=== PATIENT | female | born 1950 | race Caucasian/White ===

== ENCOUNTER → 2021-10-12 | Outpatient (CLI) | payer MEDICARE ==
--- NOTE | 2021-10-12 15:53 | Diagnostic Imaging Report ---
CLINICAL INDICATION: Patient with osteophyte of left knee. EXAM: X-ray of the left knee, three views. COMPARISON: None. FINDINGS: There is no acute fracture or dislocation. There is at least mild medial compartment narrowing. There is appearance of a small left knee effusion. The remainder of this exam shows no other significant abnormality. IMPRESSION: 1: There is no acute fracture. 2: There is a small left knee effusion. 3: There is mild medial compartment narrowing. Dictated by: Dictated on workstation # [id number]
== END ==
LOC: RAD FS 15:17 → EDSTATUS 15:57
PROVIDERS: ATTEND Emergency Medicine
DX: Z13.820 Encounter for screening for osteoporosis (principal); M25.762 Osteophyte, left knee; M25.862 Other specified joint disorders, left knee
CPT/HCPCS: 73562

== ENCOUNTER 2022-05-15 20:07 | Emergency (ER) | payer MEDICARE ==
[~2022-05-15] VITALS: Ht 155 cm; Wt 63.5 kg
--- NOTE | 2022-05-15 20:51 | ED Integumentary General ---
General Chief Complaint: Bite-Animal/Human/Insect Stated Complaint: L ARM AND HAND CAT BITE/SCRATCH Nursing Triage Note: patient states she was holding cat, door shut on cats tail. patient states cat bit and scratched her. left forarm and left hand injuries. patient cleaned areas and put neosporin on areas. 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 Cat immunizations are up-to-date. Patient did wash her head arm extensively prior to coming to the emergency department. Last known tetanus believed to be greater than 8 years. Timing/Duration: just prior to arrival Location: hands, extremities (Left forearm) Possible Cause: other Associated Symptoms: other Allergies and Home Medications Allergies Coded Allergies: Sulfa (Sulfonamide Antibiotics) (Unverified Allergy, Mild, 05/15/22) Patient Home Medication List Home Medication List Reviewed: Yes Review of Systems Review of Systems Constitutional: see HPI Musculoskeletal: see HPI Skin: see HPI Physical Exam Vital Signs Vital Signs - First Documented 05/15/22 20:18 Temp 36.7 Pulse 72 Resp 20 B/P (MAP) 199/84 (122) Pulse Ox 99 O2 Delivery Room Air Capillary Refill : Less Than 3 Seconds General Appearance: WD/WN, no apparent distress Extremities: other Neurologic/Psychiatric: no motor/sensory deficits Skin: other (Left hand cat bites with puncture wounds over extensor surface distal to MCP and overlying proximal phalanx. Bleeding is controlled, wounds are clean. Cat scratches to left extensor forearm.) Progress/Results/Core Measures Results/Orders My Orders Orders - ADRIANA JONES DO Amoxicillin/Clavulanate Tablet (Augmenti (05/15/22 21:00) Dipht,Pertuss(Acell),Tet Adult (Boostrix (05/15/22 21:00) Vital Signs/I&O 05/15/22 20:18 Temp 36.7 Pulse 72 Resp 20 B/P (MAP) 199/84 (122) Pulse Ox 99 O2 Delivery Room Air Blood Pressure Mean: 122 Departure Communication (Admissions) Wounds cleansed and and bandaged. Patient placed in arm sling. First dose of antibiotics given in the emergency department and tetanus updated. She is instructed to keep arm elevated at rest and fill antibiotics in the morning take as directed. Strict wound care instructions and return precautions reviewed. Patient verbalizes understanding and agreement with discharge instructions prior to departure. Impression Primary Impression: Cat bite of left hand Additional Impression: Cat scratch of left forearm Disposition: HOME, SELF-CARE Condition: Stable Departure-Patient Inst. Decision time for Depature: 20:55 Referrals: LALO CANDELARIO DO (PCP/Family) Primary Care Physician Patient Instructions: Animal and Human Bites Add. Discharge Instructions: Please keep wounds clean and covered and bandaged. Apply topical antibiotics and take oral antibiotics as directed. Wear arm sling and take ibuprofen as needed for pain. Follow-up with your PCP in 2 to 3 days for wound recheck. Return to the ED if new or worsening symptoms. All discharge instructions reviewed with patient and/or family. Voiced understanding. Scripts Mupirocin (Mupirocin) 2 % Oin.pf.john 1 GM TP BID, #22 TUBE Prov: ADRIANA JONES DO 05/15/22 Amoxicillin/Potassium Clav (Augmentin Xr 1,000-62.5 Tab) 1,000 Mg-62.5 Mg Tab.er.12h 1 EACH PO BID, #20 TAB Prov: ADRIANA JONES DO 05/15/22 ADRIANA JONES DO May 15, 2022 20:50
[2022-05-15] MEDS ORDERED: MUPI1OIN6 TP (20:58)
[2022-05-15] MEDS ORDERED: AMOX-356 PO (20:58)
[2022-05-15] MEDS ORDERED: AUGMENTIN 875 MG TAB (AMOXICILLIN/CLAVULANATE) PO SCH (21:00)
[2022-05-15] MEDS ORDERED: TETANUS,DIPTH,PERTUSS P/F (BOOSTRIX) 0.5 ML VIAL IM ONE (21:00)
[2022-05-15 21:09] VITALS: BP 191/84
== END 2022-05-15 21:09 | disposition home or self-care (01) ==
LOC: EDUNIT# 20:07 → ER FS 20:09
DX: S61.452A Open bite of left hand, initial encounter (principal); S50.812A Abrasion of left forearm, initial encounter; Z23 Encounter for immunization; W55.03XA Scratched by cat, initial encounter; W55.01XA Bitten by cat, initial encounter
CPT/HCPCS: 99284; L3650; 90715